=== PATIENT | female | born 1990 ===

== ENCOUNTER 2018-12-03 19:47 | Inpatient (IN) | payer BC ==
[2018-12-03] MEDS ORDERED: Butorphanol 1 MG/ML SDV IVPUSH PRN (20:40)
[2018-12-03] MEDS ORDERED: Methylergonovine 0.2 MG/1 ML Amp IM PRN (20:40)
[2018-12-03] MEDS ORDERED: Sodium Chloride 0.9% 10 ML SDV IV PRN (20:40)
[2018-12-03] MEDS ORDERED: Terbutaline 1 MG/ML SDV SUBCUT PRN (20:40)
[2018-12-03] MEDS ORDERED: Nalbuphine 10 MG/1 ML Vial IVPUSH PRN (20:40)
[2018-12-03] MEDS ORDERED: Misoprostol 200 MCG Tab PO PRN (20:40)
[2018-12-03] MEDS ORDERED: Sodium Chloride 0.9% 10 ML Syringe FLUSH PRN (20:40)
[2018-12-03] MEDS ORDERED: Misoprostol 25 MCG (1/4 of 100 MCG) Tab VAG PRN ×2 (20:40)
[2018-12-03] MEDS ORDERED: Tranexamic Acid 1,000 MG in Sodium Chloride 0.9% 100 ML IV PRN (20:40)
[2018-12-03] MEDS ORDERED: Water For Irrigation,Sterile 1,000 ML Container IRR PRN (20:40)
[2018-12-03] MEDS ORDERED: Lidocaine 1% 50 ML MDV INJECT PRN (20:40)
[2018-12-03] MEDS ORDERED: Ondansetron 4 MG/2 ML SDV IV PRN (20:40)
[2018-12-03] MEDS ORDERED: Carboprost Tromethamine 250 MCG/1 ML Amp IM PRN (20:40)
[2018-12-03] MEDS ORDERED: Sodium Chloride 0.9% 2.5 ML Syringe FLUSH PRN (20:40)
[2018-12-03] MEDS ORDERED: Oxytocin/0.9 % Sodium Chloride 30 UNIT/500 ML BAG IV SCH ×2 (20:45)
[2018-12-04] MEDS: Lactated Ringers 1,000 ML IV SCH ×7 (07:54→22:31)
--- NOTE | 2018-12-04 12:09 | PCM.PREANE ---
Preanesthetic Assessment - Procedure Proposed Procedure: MARGARITA - Anesthesia/Transfusion/Family Hx Anesthesia History: Prior Anesthesia Without Reaction Family History of Anesthesia Reaction: No Transfusion History: No Prior Transfusion(s) - Review of Systems General: No Symptoms Pulmonary: No Symptoms Cardiovascular: No Symptoms Gastrointestinal: No Symptoms Neurological: No Symptoms Other: Reports: Diabetes - Physical Assessment Height: 5 ft 2 in Weight: 97.976 kg ASA Class: 2 Mental Status: Alert & Oriented x3 Airway Class: Mallampati = 2 Dentition: Reports: Normal Dentition ROM/Head Extension: Full Lungs: Clear to Auscultation, Normal Respiratory Effort Cardiovascular: Regular Rate, Regular Rhythm - Lab Values: Laboratory Last Values WBC 11.86 K/uL (4.0-11.0) H 12/03/18 21:08 RBC 4.61 M/uL (4.30-5.90) 12/03/18 21:08 Hgb 12.8 g/dL (12.0-16.0) 12/03/18 21:08 Hct 38.7 % (36.0-46.0) 12/03/18 21:08 MCV 83.9 fL (80.0-98.0) 12/03/18 21:08 MCH 27.8 pg (27.0-32.0) 12/03/18 21:08 MCHC 33.1 g/dL (31.0-37.0) 12/03/18 21:08 RDW Std Deviation 47.0 fl (28.0-62.0) 12/03/18 21:08 RDW Coeff of Betzy 15 % (11.0-15.0) 12/03/18 21:08 Plt Count 281 K/uL (150-400) 12/03/18 21:08 MPV 10.60 fL (7.40-12.00) 12/03/18 21:08 Nucleated RBC % 0.0 /100WBC 12/03/18 21:08 Nucleated RBCs # 0 K/uL 12/03/18 21:08 POC Glucose 68 mg/dL (60-110) 12/04/18 07:38 Blood Type B POSITIVE 12/03/18 21:08 Antibody Screen NEGATIVE 12/03/18 21:08 - Allergies Allergies/Adverse Reactions: Allergies Allergy/AdvReac Type Severity Reaction Status Date / Time No Known Allergies Allergy Verified 09/07/18 21:29 - Blood Blood Available: No Product(s) Available: None - Anesthesia Plan Pre-Op Medication Ordered: None - Acknowledgements Anesthesia Type Planned: Epidural Pt an Appropriate Candidate for the Planned Anesthesia: Yes Alternatives and Risks of Anesthesia Discussed w Pt/Guardian: Yes Pt/Guardian Understands and Agrees with Anesthesia Plan: Yes PreAnesthesia Questionnaire HEENT History: Reports: None Cardiovascular History: Reports: None Respiratory History: Reports: None Genitourinary History: Reports: None CELERY PACKER History: Reports: Polycystic Ovaries, , Spontaneous Musculoskeletal History: Reports: None Neurological History: Reports: None Psychiatric History: Reports: None Endocrine/Metabolic History: Reports: Diabetes, Gestational Hematologic History: Reports: None Immunologic History: Reports: None Oncologic (Cancer) History: Reports: None Dermatologic History: Reports: None - Past Surgical History Head Surgeries/Procedures: Reports: None GI Surgical History: Reports: Colonoscopy, Polypectomy Female Surgical History: Reports: Cystectomy - SUBSTANCE USE Smoking Status *Q: Current Every Day Smoker Tobacco Use Within Last Twelve Months: Cigarettes Second Hand Smoke Exposure: Yes Recreational Drug Use History: No - HOME MEDS Home Medications: Home Meds Metoclopramide [Reglan] 10 mg PO Q8H PRN 5 Days #30 tab 09/08/18 [Rx] - CURRENT (IN HOUSE) MEDS Current Meds: Current Medications Butorphanol Tartrate (Stadol) 1 mg IVPUSH Q1H PRN PRN Reason: Pain Last Admin: 12/04/18 10:11 Dose: 1 mg Carboprost Tromethamine (Hemabate Ds) 250 mcg IM ASDIRECTED PRN PRN Reason: Post Hemorrhage Lactated Ringer's (Ringers, Lactated) 1,000 mls @ 150 mls/hr IV ASDIRECTED BA Last Admin: 12/04/18 12:05 Dose: 500 mls/hr Oxytocin/Sodium Chloride (Oxytocin 30 Unit/500 Ml-Ns) 30 unit in 500 mls @ 999 mls/hr IV TITRATE BA Oxytocin/Sodium Chloride (Oxytocin 30 Unit/500 Ml-Ns) 30 unit in 500 mls @ 2 mls/hr IV TITRATE BA; Protocol Last Admin: 12/04/18 08:11 Dose: 2 munits/min, 2 mls/hr Tranexamic Acid 1,000 mg/ (Sodium Chloride) 110 mls @ 660 mls/hr IV ONETIME PRN PRN Reason: Bleeding Lidocaine HCl (Xylocaine 1%) 50 ml INJECT ONETIME PRN PRN Reason: Laceration repair Methylergonovine Maleate (Methergine) 0.2 mg IM ASDIRECTED PRN PRN Reason: Post Hemorrhage Misoprostol (Cytotec) 200 mcg PO ONETIME PRN PRN Reason: Post Hemorrhage Misoprostol (Cytotec) 25 mcg VAG ONETIME PRN PRN Reason: Cervical Ripening Last Admin: 12/03/18 21:50 Dose: 25 mcg Misoprostol (Cytotec) 25 mcg VAG Q4H PRN PRN Reason: Cervical Ripening Last Admin: 12/04/18 03:32 Dose: 25 mcg Nalbuphine HCl (Nubain) 10 mg IVPUSH Q1H PRN PRN Reason: Pain (severe 7-10) Last Admin: 12/04/18 11:44 Dose: 10 mg Ondansetron HCl (Zofran) 4 mg IV Q6H PRN PRN Reason: Nausea/Vomiting Sodium Chloride (Saline Flush) 10 ml FLUSH ASDIRECTED PRN PRN Reason: Keep Vein Open Sodium Chloride (Saline Flush) 2.5 ml FLUSH ASDIRECTED PRN PRN Reason: Keep Vein Open Sodium Chloride (Normal Saline) 10 ml IV ASDIRECTED PRN PRN Reason: IV Use Sterile Water (Sterile Water For Irrigation) 1,000 ml IRR ASDIRECTED PRN PRN Reason: delivery Terbutaline Sulfate (Brethine) 0.25 mg SUBCUT ASDIRECTED PRN PRN Reason: Tacysystole
[2018-12-04] MEDS ORDERED: fentaNYL 100 MCG/2 ML SDV ONE (12:15)
[2018-12-04] MEDS ORDERED: Lidocaine HCl/EPINEPHrine 5 ML IJ ONE (12:15)
[2018-12-04] MEDS ORDERED: Bupivacaine 0.25% 10 ML SDV ONE (12:15)
[2018-12-04] MEDS ORDERED: Bupivacaine 0.5% 10 ML SDV ONE (21:28)
[2018-12-05] MEDS ORDERED: ceFAZolin 2 GM in Premix Bag 1 BAG IV ONE (01:14)
[2018-12-05] MEDS ORDERED: Bupivacaine 0.5% 10 ML SDV ONE (01:20)
[2018-12-05] MEDS ORDERED: Sodium Chloride 0.9% 20 ML ONE (01:32)
[2018-12-05] MEDS ORDERED: ceFAZolin 1 GM Vial ONE (01:32)
[2018-12-05] MEDS ORDERED: Ondansetron 4 MG/2 ML SDV ONE (01:33)
[2018-12-05] MEDS ORDERED: Oxytocin 10 Units/1 ML SDV ONE (01:34)
[2018-12-05] MEDS ORDERED: Morphine PF 10 MG/10 ML SDV ONE (01:51)
[2018-12-05] MEDS ORDERED: Meperidine PF 25 MG/ML Syringe ONE (01:53)
[2018-12-05] MEDS ORDERED: ePHEDrine 50 MG/ML SDV ONE (02:02)
[2018-12-05] MEDS ORDERED: Desflurane 240 ML Bottle ONE (02:11)
[2018-12-05] MEDS ORDERED: Lanolin 100% Cream 7 GM Tube TOP PRN (02:39)
[2018-12-05] MEDS ORDERED: Bisacodyl 10 MG Supp RECTAL PRN (02:39)
[2018-12-05] MEDS ORDERED: Acetaminophen/oxyCODONE 325-5 MG Tab PO PRN ×2 (02:39→18:36)
[2018-12-05] MEDS ORDERED: diphenhydrAMINE 50 MG/ML SDV IVPUSH PRN ×2 (02:39→02:54)
[2018-12-05] MEDS ORDERED: Ondansetron 4 MG/2 ML SDV IVPUSH PRN (02:39)
[2018-12-05] MEDS ORDERED: Lactated Ringers 1,000 ML IV SCH (02:45)
[2018-12-05] MEDS ORDERED: Naloxone 0.4 MG/ML Syringe IVPUSH PRN (02:54)
--- NOTE | 2018-12-05 02:56 | PCM.OPNOTE ---
- General Post-Op/Procedure Note Date of Surgery/Procedure: 12/05/18 Operative Procedure(s): Primary LTCS Findings: Viable female APGARs 8, 9 weight 3190 gm. Delivery intact placenta with 3V cord Pre Op Diagnosis: 39/2 week IUP. GDM. Abnormal heart tones Post-Op Diagnosis: Same Anesthesia Technique: Epidural Primary Surgeon: Court Villarreal Fluid Replacement, Intraop: 700 EBL in mLs: 600 Complications: none known Condition: Good Free Text/Narrative:: Intake & Output 12/04/18 12/04/18 12/05/18 14:59 22:59 06:59 Intake Total 2000 Output Total 200 Balance 1999 - Dictation [id number]
--- NOTE | 2018-12-05 02:56 | PCM.POSTAN ---
POST ANESTHESIA ASSESSMENT - MENTAL STATUS Mental Status: Alert, Oriented - VITAL SIGNS Pulse Rate: 110 SaO2: 98 (RA) Resp Rate: 14 Blood Pressure: 123/82 - RESPIRATORY Respiratory Status: Respiratory Rate WNL, Airway Patent, O2 Saturation Stable - CARDIOVASCULAR CV Status: Pulse Rate WNL, Blood Pressure Stable - GASTROINTESTINAL GI Status: No Symptoms - PAIN Pain Score: 0 - POST OP HYDRATION Hydration Status: Adequate & Stable
[2018-12-05] MEDS: Ketorolac 30 MG/ML SDV IVPUSH SCH ×4 (03:16→20:53)
--- NOTE | 2018-12-05 04:18 | OR ---
SURGEON: Court Villarreal M.D. DATE OF PROCEDURE: 12/05/2018 PREOPERATIVE DIAGNOSES: 1. 39 and 2-week intrauterine . 2. Gestational diabetes. 3. Abnormal heart tones. POSTOPERATIVE DIAGNOSES: 1. 39 and 2-week intrauterine . 2. Gestational diabetes. 3. Abnormal heart tones. PROCEDURE: Primary low-transverse section. PRIMARY SURGEON: Court Villarreal M.D. ANESTHESIA: Epidural. ESTIMATED BLOOD LOSS: 600 mL. FLUIDS: 700 mL of crystalloid in the OR. COMPLICATIONS: None. FINDINGS: Viable female, scores 8 at 1 minute and 9 at 5 minutes, weight of 3190 g. Intact placenta, 3-vessel cord. DISPOSITION: Infant to nursery, mom to PACU. PROCEDURE DETAILS: Cristiane is a 28-year-old, , at 39 and 2 weeks' gestational age, who presented on the evening of 12/03/2018 for a scheduled induction of labor due to gestational diabetes at term gestation. The patient was initiated on Cytotec ripening, responded nicely to this. The following morning progressed to Pitocin induction. Had spontaneous rupture of membranes at approximately 10:30 a.m. with clear fluid. 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 At that time, she was found to be 3 cm, underwent regional anesthesia from epidural, became more comfortable. Shortly before 7:00 p.m., she was found to be 4 to 5 cm, 90% effaced, -2 station. An IUPC was placed and continued monitoring with titration of Pitocin, and was able to progress to complete, 100% effaced, at +1 station. Shortly before 9:00 p.m., she began pushing efforts and was pushing adequately. However, in the second hour of pushing, we started having recurrent late variable decelerations that were fairly deep to the 70s. Therefore, we tried repositioning, decreasing Pitocin with still deep variables with any efforts at pushing. The station was still +1. Therefore, given these findings and recurrent late decelerations, I am advising proceeding with delivery. Risks of the procedure have been discussed with her including infection; bleeding; possible trauma to the surrounding bowel, bladder, and ureters; in case of excessive blood loss, need for blood product transfusion; in rare lifesaving circumstances, need for hysterectomy; risk of thrombolic event; and risk of anesthesia. The patient voiced her understanding to this and would like to proceed. The patient was taken to the operating room where she underwent a bolus of her epidural, was placed in dorsal supine position with leftward tilt, SCDs to the lower extremities, [place] to gravity, and was prepped and draped in the usual sterile fashion. After anesthesia was tested and found to be adequate, a time- out was held, and Pfannenstiel skin incision was created and carried down to the level of the rectus fascia, was incised in midline, lateralized on either side sharply and bluntly. The superior aspect of the fascia was tented upward, dissected sharply and bluntly from underlying muscle. In a similar manner, it was performed on the inferior aspect of the fascia. Rectus muscle was in the midline. Peritoneum was entered. Rectus muscle and peritoneum were lateralized bluntly. Uterine position and position were palpated. Uterovesical reflection was visualized. Bladder flap was created sharply and bluntly. Bladder was mobilized away from the lower uterine segment. Low transverse hysterotomy was now performed. Uterine cavity was entered bluntly with the scalpel. Hysterotomy was lateralized bluntly. Infant's head was flexed and delivered from the pelvis. There was a loose nuchal cord x1, reduced manually. Infant's shoulders followed by remainder of the body was delivered. Infant's oropharynx and nares were bulb suctioned. Cord was clamped x2 and cut. was handed off to the attending escrow secretary. Cord arterial, cord venous, cord blood sampling was obtained. The placenta was now delivered. Uterine cavity was cleared of all clot and debris. Hysterotomy was repaired using 0 Vicryl in continuous running locked fashion followed by re-imbricating layer. Area of oozing along the midline was replicated with 3 [id number] sutures. Hemostasis thereafter evident. Posterior aspect of the uterus was inspected, no defects or hematomas were found to be forming. Region was well irrigated, suction dried. Uterus was returned to the abdominal cavity. Colonic gutters were cleared of all clot and debris, well irrigated, suction dried. Hysterotomy was again inspected. Areas of serosal oozing were cauterized. Self- retaining retractor was now gently removed. Hysterotomy was once again inspected and found to be hemostatic. The rectus muscle and peritoneum were reapproximated using 0 Vicryl with inverted mattress suture technique. Anterior aspect of the muscle, posterior aspect of the fascia were closely inspected and any areas of oozing were cauterized. Rectus fascia was reapproximated using 0 Vicryl in continuous running fashion, beginning laterally on each side and meeting in the midline. Subcutaneous tissue was well irrigated, suction dried and any areas of oozing were cauterized. The skin edges were reapproximated using 3-0 Vicryl on a Dash needle in subcuticular fashion followed by re- imbricating with half-inch Steri-Strips and Mastisol. Uterus remained firm. Sponge, instrument, and needle counts were correct x2. The patient tolerated the procedure well. She will go to PACU in stable condition, infant to nursery. PITA / JOSE MARIA /[id number]
[2018-12-05] MEDS: Nalbuphine 10 MG/1 ML Vial IVPUSH PRN ×2 (04:58→16:35)
[2018-12-05] MEDS: Simethicone 80 MG Tab.Chew PO SCH ×3 (06:10→19:52)
--- NOTE | 2018-12-05 07:40 | PCM48HPAN ---
Post Anesthesia Note - EVALUATION WITHIN 48HRS OF ANESTHETIC Vital Signs in Normal Range: Yes Patient Participated in Evaluation: Yes Respiratory Function Stable: Yes Airway Patent: Yes Cardiovascular Function Stable: Yes Hydration Status Stable: Yes Pain Control Satisfactory: Yes Nausea and Vomiting Control Satisfactory: Yes Mental Status Recovered: Yes Pulse Rate: 110 Resp Rate: 17 Blood Pressure: 123/82
[2018-12-05] MEDS: Docusate Sodium 100 MG Cap PO SCH ×2 (08:41→20:53)
[2018-12-06] MEDS: Simethicone 80 MG Tab.Chew PO SCH ×4 (02:38→18:38)
[2018-12-06] MEDS: Ketorolac 30 MG/ML SDV IVPUSH SCH (02:41)
[2018-12-06] MEDS: Acetaminophen/oxyCODONE 325-5 MG Tab PO PRN ×5 (04:00→21:31)
[2018-12-06] MEDS: Docusate Sodium 100 MG Cap PO SCH ×2 (08:45→20:34)
--- NOTE | 2018-12-06 12:17 | PCM.PNPP ---
- General Info Date of Service: 12/06/18 - Review of Systems General: Reports: No Symptoms. Denies: Fever, Weakness Pulmonary: Denies: Shortness of Breath Cardiovascular: Denies: Chest Pain, Palpitations, Lightheadedness Gastrointestinal: Reports: Abdominal Pain (incisional well controlled), Flatus. Denies: Nausea, Vomiting Genitourinary: Reports: No Symptoms Musculoskeletal: Reports: No Symptoms Skin: Reports: No Symptoms Neurological: Reports: No Symptoms Psychiatric: Reports: No Symptoms - General Info Date of Service: 12/06/18 - Patient Data Vital Signs - Most Recent: Last Vital Signs Temp 36.6 C 12/06/18 07:25 Pulse 89 12/06/18 07:25 Resp 18 12/06/18 07:25 BP 131/73 12/06/18 07:25 Pulse Ox 97 12/06/18 07:25 Weight - Most Recent: 97.976 kg I&O - Last 24 Hours: Intake & Output 12/05/18 12/06/18 12/06/18 22:59 06:59 14:59 Output Total 2650 800 Balance -2650 -800 Lab Results - Last 24 Hours: Laboratory Results - last 24 hr 12/06/18 12/06/18 Range/Units 05:37 05:37 Hgb 9.5 L (12.0-16.0) g/dL Hct 29.8 L (36.0-46.0) % Fasting Glucose 90 (74-106) mg/dL Med Orders - Current: Current Medications Bisacodyl (Dulcolax) 10 mg RECTAL ONETIME PRN PRN Reason: Constipation Carboprost Tromethamine (Hemabate Ds) 250 mcg IM ASDIRECTED PRN PRN Reason: Post Hemorrhage Diphenhydramine HCl (Benadryl) 25 mg IVPUSH Q6H PRN PRN Reason: Itching or Nausea Last Admin: 12/05/18 06:52 Dose: 25 mg Docusate Sodium (Colace) 100 mg PO BID BA Last Admin: 12/06/18 08:45 Dose: 100 mg Emollient Ointment (Lansinoh Hpa) 0 gm TOP ASDIRECTED PRN PRN Reason: Sore Nipples Lactated Ringer's (Ringers, Lactated) 1,000 mls @ 150 mls/hr IV ASDIRECTED BA Last Admin: 12/04/18 22:31 Dose: 999 mls/hr Oxytocin/Sodium Chloride (Oxytocin 30 Unit/500 Ml-Ns) 30 unit in 500 mls @ 999 mls/hr IV TITRATE BA Oxytocin/Sodium Chloride (Oxytocin 30 Unit/500 Ml-Ns) 30 unit in 500 mls @ 2 mls/hr IV TITRATE BA; Protocol Last Titration: 12/05/18 01:02 Dose: 0 munits/min, 0 mls/hr Tranexamic Acid 1,000 mg/ (Sodium Chloride) 110 mls @ 660 mls/hr IV ONETIME PRN PRN Reason: Bleeding Lactated Ringer's (Ringers, Lactated) 1,000 mls @ 125 mls/hr IV ASDIRECTED [facility] Ibuprofen (Motrin) 800 mg PO Q8H PRN PRN Reason: mild pain or fever Lidocaine HCl (Xylocaine 1%) 50 ml INJECT ONETIME PRN PRN Reason: Laceration repair Methylergonovine Maleate (Methergine) 0.2 mg IM ASDIRECTED PRN PRN Reason: Post Hemorrhage Nalbuphine HCl (Nubain) 10 mg IVPUSH Q1H PRN PRN Reason: Pain (severe 7-10) Last Admin: 12/04/18 11:44 Dose: 10 mg Ondansetron HCl (Zofran) 4 mg IV Q6H PRN PRN Reason: Nausea/Vomiting Ondansetron HCl (Zofran) 4 mg IVPUSH Q4H PRN PRN Reason: Nausea/Vomiting Oxycodone/Acetaminophen (Percocet 325-5 Mg) 1 tab PO Q4H PRN PRN Reason: Pain (moderate 4-6) Oxycodone/Acetaminophen (Percocet 325-5 Mg) 2 tab PO Q4H PRN PRN Reason: Pain (moderate 4-6) Last Admin: 12/06/18 08:44 Dose: 2 tab Simethicone (Simethicone) 160 mg PO QID [facility] Last Admin: 12/06/18 06:32 Dose: 160 mg Sodium Chloride (Saline Flush) 10 ml FLUSH ASDIRECTED PRN PRN Reason: Keep Vein Open Sodium Chloride (Saline Flush) 2.5 ml FLUSH ASDIRECTED PRN PRN Reason: Keep Vein Open Sterile Water (Sterile Water For Irrigation) 1,000 ml IRR ASDIRECTED PRN PRN Reason: delivery Discontinued Medications Bupivacaine HCl (Sensorcaine-Mpf 0.25%) Confirm Administered Dose 10 ml .ROUTE .STK-MED ONE Stop: 12/04/18 12:16 Last Admin: 12/05/18 05:37 Dose: Not Given Bupivacaine HCl (Sensorcaine-Mpf 0.5%) Confirm Administered Dose 10 ml .ROUTE .STK-MED ONE Stop: 12/04/18 21:29 Last Admin: 12/05/18 05:38 Dose: Not Given Bupivacaine HCl (Sensorcaine-Mpf 0.5%) Confirm Administered Dose 20 ml .ROUTE .STK-MED ONE Stop: 12/05/18 01:21 Last Admin: 12/05/18 05:38 Dose: Not Given Butorphanol Tartrate (Stadol) 1 mg IVPUSH Q1H PRN PRN Reason: Pain Last Admin: 12/04/18 10:11 Dose: 1 mg Cefazolin Sodium (Ancef) Confirm Administered Dose 2 gm .ROUTE .STK-MED ONE Stop: 12/05/18 01:33 Desflurane (Suprane) Confirm Administered Dose 240 ml .ROUTE .STK-MED ONE Stop: 12/05/18 02:12 Diphenhydramine HCl (Benadryl) 25 mg IVPUSH Q4H PRN PRN Reason: Itching Stop: 12/06/18 02:55 Ephedrine Sulfate (Ephedrine Sulfate) Confirm Administered Dose 50 mg .ROUTE .STK-MED ONE Stop: 12/05/18 02:03 Fentanyl (Sublimaze) Confirm Administered Dose 100 mcg .ROUTE .STK-MED ONE Stop: 12/04/18 12:16 Last Admin: 12/05/18 05:38 Dose: Not Given Fentanyl/Bupivacaine HCl (Nrxztxof-Xrhrk-[id number] 2 Mcg/Ml-0.125%) Confirm Administered Dose 100 mls @ as directed .ROUTE .STK-MED ONE Stop: 12/04/18 12:16 Last Admin: 12/05/18 05:37 Dose: Not Given Fentanyl/Bupivacaine HCl (Fktlyzxc-Yqoxm-Kb 2 Mcg/Ml-0.125%) Confirm Administered Dose 100 mls @ as directed .ROUTE .STK-MED ONE Stop: 12/04/18 21:29 Last Admin: 12/05/18 05:38 Dose: Not Given Cefazolin Sodium/Dextrose 2 gm (/ Premix) 50 mls @ 100 mls/hr IV ONETIME ONE Stop: 12/05/18 01:43 Last Admin: 12/05/18 05:38 Dose: Not Given Sodium Chloride (Normal Saline) Confirm Administered Dose 20 mls @ as directed .ROUTE .STK-MED ONE Stop: 12/05/18 01:33 Ketorolac Tromethamine (Toradol) 30 mg IVPUSH Q6H BA Stop: 12/06/18 02:46 Last Admin: 12/06/18 02:41 Dose: 30 mg Lidocaine/Epinephrine (Lidocaine 1.5%-Epi 1:200,000) Confirm Administered Dose 5 ml IJ .STK-MED ONE Stop: 12/04/18 12:16 Last Admin: 12/05/18 05:37 Dose: Not Given Meperidine HCl (Demerol) Confirm Administered Dose 25 mg .ROUTE .STK-MED ONE Stop: 12/05/18 01:54 Misoprostol (Cytotec) 200 mcg PO ONETIME PRN PRN Reason: Post Hemorrhage Misoprostol (Cytotec) 25 mcg VAG ONETIME PRN PRN Reason: Cervical Ripening Last Admin: 12/03/18 21:50 Dose: 25 mcg Misoprostol (Cytotec) 25 mcg VAG Q4H PRN PRN Reason: Cervical Ripening Last Admin: 12/04/18 03:32 Dose: 25 mcg Morphine Sulfate (Duramorph Pf) Confirm Administered Dose 10 mg .ROUTE .STK-MED ONE Stop: 12/05/18 01:52 Nalbuphine HCl (Nubain) 5 mg IVPUSH Q3H PRN PRN Reason: Pruritis Stop: 12/06/18 02:55 Last Admin: 12/05/18 16:35 Dose: 5 mg Naloxone HCl (Narcan) 0.1 mg IVPUSH ONETIME PRN PRN Reason: Respiratory Depression Stop: 12/06/18 02:55 Ondansetron HCl (Zofran) Confirm Administered Dose 4 mg .ROUTE .STK-MED ONE Stop: 12/05/18 01:34 Oxycodone/Acetaminophen (Percocet 325-5 Mg) 1 - 2 tab PO Q4H PRN PRN Reason: Pain Stop: 12/06/18 01:46 Last Admin: 12/05/18 19:11 Dose: 2 tab Oxytocin (Pitocin) Confirm Administered Dose 30 unit .ROUTE .STK-MED ONE Stop: 12/05/18 01:35 Sodium Chloride (Normal Saline) 10 ml IV ASDIRECTED PRN PRN Reason: IV Use Terbutaline Sulfate (Brethine) 0.25 mg SUBCUT ASDIRECTED PRN PRN Reason: Tacysystole - Infant Interaction Support Person: , Sister - Recovery Exam Fundal Tone: Firm Fundal Level: 1 Fingerbreadths Below Umbilicus Fundal Placement: Midline Lochia Amount: Scant Lochia Color: [place] Perineum Description: Intact, Minimal Bruising/Swelling, Other (see below) Other Perinuem Description: labial edema Episiotomy/Laceration: None Bladder Status: Voiding Urinary Elimination: Voided - Exam General: Alert, Oriented Lungs: Normal Respiratory Effort Cardiovascular: Regular Rate, Regular Rhythm GI/Abdominal Exam: Normal Bowel Sounds, Soft Extremities: Pedal Edema (1+). No: Jerrell's Sign Skin: Warm, Dry, Intact Wound/Incisions: Healing Well, No Drainage. No: Erythema Neurological: No New Focal Deficit Psy/Mental Status: Alert, Normal Affect, Normal Mood - Problem List & Annotations (1) Delivery by section SNOMED Code(s): 211461944 Code(s): PFS3947 - Status: Acute Current Visit: Yes - Problem List Review Problem List Initiated/Reviewed/Updated: Yes - My Orders Last 24 Hours: My Active Orders 12/06/18 08:46 Ibuprofen [Motrin] 800 mg PO Q8H PRN - Assessment Assessment:: PPD 1 status post primary LTCS Gestational diabetes, normal fasting glucose - Plan Plan:: Stable overall, continue postoperative cares.
[2018-12-06] MEDS: Ibuprofen 800 MG Tab PO PRN (16:06)
[2018-12-07] MEDS: Simethicone 80 MG Tab.Chew PO SCH ×2 (00:05→05:58)
[2018-12-07] MEDS: Ibuprofen 800 MG Tab PO PRN (04:40)
[2018-12-07] MEDS: Acetaminophen/oxyCODONE 325-5 MG Tab PO PRN (06:05)
[2018-12-07] MEDS: Docusate Sodium 100 MG Cap PO SCH (08:46)
--- NOTE | 2018-12-07 09:58 | PCM.PNPP ---
- General Info Date of Service: 12/07/18 Functional Status: Reports: Pain Controlled, Tolerating Diet, Ambulating, Urinating - Review of Systems General: Denies: Fever, Weakness Pulmonary: Denies: Shortness of Breath Cardiovascular: Denies: Chest Pain, Palpitations Gastrointestinal: Reports: Flatus. Denies: Abdominal Pain, Nausea, Vomiting Genitourinary: Reports: No Symptoms Musculoskeletal: Reports: No Symptoms Skin: Reports: No Symptoms Neurological: Reports: No Symptoms Psychiatric: Reports: No Symptoms - General Info Date of Service: 12/07/18 - Patient Data Vital Signs - Most Recent: Last Vital Signs Temp 36.8 C 12/07/18 08:08 Pulse 89 12/07/18 08:08 Resp 14 12/07/18 08:08 BP 123/79 12/07/18 08:08 Pulse Ox 99 12/07/18 08:08 Weight - Most Recent: 97.976 kg Med Orders - Current: Current Medications Bisacodyl (Dulcolax) 10 mg RECTAL ONETIME PRN PRN Reason: Constipation Carboprost Tromethamine (Hemabate Ds) 250 mcg IM ASDIRECTED PRN PRN Reason: Post Hemorrhage Diphenhydramine HCl (Benadryl) 25 mg IVPUSH Q6H PRN PRN Reason: Itching or Nausea Last Admin: 12/05/18 06:52 Dose: 25 mg Docusate Sodium (Colace) 100 mg PO BID BA Last Admin: 12/07/18 08:46 Dose: 100 mg Emollient Ointment (Lansinoh Hpa) 0 gm TOP ASDIRECTED PRN PRN Reason: Sore Nipples Lactated Ringer's (Ringers, Lactated) 1,000 mls @ 150 mls/hr IV ASDIRECTED BA Last Admin: 12/04/18 22:31 Dose: 999 mls/hr Oxytocin/Sodium Chloride (Oxytocin 30 Unit/500 Ml-Ns) 30 unit in 500 mls @ 999 mls/hr IV TITRATE BA Oxytocin/Sodium Chloride (Oxytocin 30 Unit/500 Ml-Ns) 30 unit in 500 mls @ 2 mls/hr IV TITRATE BA; Protocol Last Titration: 12/05/18 01:02 Dose: 0 munits/min, 0 mls/hr Tranexamic Acid 1,000 mg/ (Sodium Chloride) 110 mls @ 660 mls/hr IV ONETIME PRN PRN Reason: Bleeding Lactated Ringer's (Ringers, Lactated) 1,000 mls @ 125 mls/hr IV ASDIRECTED BA Ibuprofen (Motrin) 800 mg PO Q8H PRN PRN Reason: mild pain or fever Last Admin: 12/07/18 04:40 Dose: 800 mg Lidocaine HCl (Xylocaine 1%) 50 ml INJECT ONETIME PRN PRN Reason: Laceration repair Methylergonovine Maleate (Methergine) 0.2 mg IM ASDIRECTED PRN PRN Reason: Post Hemorrhage Nalbuphine HCl (Nubain) 10 mg IVPUSH Q1H PRN PRN Reason: Pain (severe 7-10) Last Admin: 12/04/18 11:44 Dose: 10 mg Ondansetron HCl (Zofran) 4 mg IV Q6H PRN PRN Reason: Nausea/Vomiting Ondansetron HCl (Zofran) 4 mg IVPUSH Q4H PRN PRN Reason: Nausea/Vomiting Oxycodone/Acetaminophen (Percocet 325-5 Mg) 1 tab PO Q4H PRN PRN Reason: Pain (moderate 4-6) Oxycodone/Acetaminophen (Percocet 325-5 Mg) 2 tab PO Q4H PRN PRN Reason: Pain (moderate 4-6) Last Admin: 12/07/18 06:05 Dose: 2 tab Simethicone (Simethicone) 160 mg PO QID [facility] Last Admin: 12/07/18 05:58 Dose: 160 mg Sodium Chloride (Saline Flush) 10 ml FLUSH ASDIRECTED PRN PRN Reason: Keep Vein Open Sodium Chloride (Saline Flush) 2.5 ml FLUSH ASDIRECTED PRN PRN Reason: Keep Vein Open Sterile Water (Sterile Water For Irrigation) 1,000 ml IRR ASDIRECTED PRN PRN Reason: delivery Discontinued Medications Bupivacaine HCl (Sensorcaine-Mpf 0.25%) Confirm Administered Dose 10 ml .ROUTE .STK-MED ONE Stop: 12/04/18 12:16 Last Admin: 12/05/18 05:37 Dose: Not Given Bupivacaine HCl (Sensorcaine-Mpf 0.5%) Confirm Administered Dose 10 ml .ROUTE .STK-MED ONE Stop: 12/04/18 21:29 Last Admin: 12/05/18 05:38 Dose: Not Given Bupivacaine HCl (Sensorcaine-Mpf 0.5%) Confirm Administered Dose 20 ml .ROUTE .STK-MED ONE Stop: 12/05/18 01:21 Last Admin: 12/05/18 05:38 Dose: Not Given Butorphanol Tartrate (Stadol) 1 mg IVPUSH Q1H PRN PRN Reason: Pain Last Admin: 12/04/18 10:11 Dose: 1 mg Cefazolin Sodium (Ancef) Confirm Administered Dose 2 gm .ROUTE .STK-MED ONE Stop: 12/05/18 01:33 Desflurane (Suprane) Confirm Administered Dose 240 ml .ROUTE .STK-MED ONE Stop: 12/05/18 02:12 Diphenhydramine HCl (Benadryl) 25 mg IVPUSH Q4H PRN PRN Reason: Itching Stop: 12/06/18 02:55 Ephedrine Sulfate (Ephedrine Sulfate) Confirm Administered Dose 50 mg .ROUTE .STK-MED ONE Stop: 12/05/18 02:03 Fentanyl (Sublimaze) Confirm Administered Dose 100 mcg .ROUTE .STK-MED ONE Stop: 12/04/18 12:16 Last Admin: 12/05/18 05:38 Dose: Not Given Fentanyl/Bupivacaine HCl (Uyjsisil-Drccf-Vo 2 Mcg/Ml-0.125%) Confirm Administered Dose 100 mls @ as directed .ROUTE .STK-MED ONE Stop: 12/04/18 12:16 Last Admin: 12/05/18 05:37 Dose: Not Given Fentanyl/Bupivacaine HCl (Saivaewp-Ofzjv-Bb 2 Mcg/Ml-0.125%) Confirm Administered Dose 100 mls @ as directed .ROUTE .STK-MED ONE Stop: 12/04/18 21:29 Last Admin: 12/05/18 05:38 Dose: Not Given Cefazolin Sodium/Dextrose 2 gm (/ Premix) 50 mls @ 100 mls/hr IV ONETIME ONE Stop: 12/05/18 01:43 Last Admin: 12/05/18 05:38 Dose: Not Given Sodium Chloride (Normal Saline) Confirm Administered Dose 20 mls @ as directed .ROUTE .STK-MED ONE Stop: 12/05/18 01:33 Ketorolac Tromethamine (Toradol) 30 mg IVPUSH Q6H BA Stop: 12/06/18 02:46 Last Admin: 12/06/18 02:41 Dose: 30 mg Lidocaine/Epinephrine (Lidocaine 1.5%-Epi 1:200,000) Confirm Administered Dose 5 ml IJ .STK-MED ONE Stop: 12/04/18 12:16 Last Admin: 12/05/18 05:37 Dose: Not Given Meperidine HCl (Demerol) Confirm Administered Dose 25 mg .ROUTE .STK-MED ONE Stop: 12/05/18 01:54 Misoprostol (Cytotec) 200 mcg PO ONETIME PRN PRN Reason: Post Hemorrhage Misoprostol (Cytotec) 25 mcg VAG ONETIME PRN PRN Reason: Cervical Ripening Last Admin: 12/03/18 21:50 Dose: 25 mcg Misoprostol (Cytotec) 25 mcg VAG Q4H PRN PRN Reason: Cervical Ripening Last Admin: 12/04/18 03:32 Dose: 25 mcg Morphine Sulfate (Duramorph Pf) Confirm Administered Dose 10 mg .ROUTE .STK-MED ONE Stop: 12/05/18 01:52 Nalbuphine HCl (Nubain) 5 mg IVPUSH Q3H PRN PRN Reason: Pruritis Stop: 12/06/18 02:55 Last Admin: 12/05/18 16:35 Dose: 5 mg Naloxone HCl (Narcan) 0.1 mg IVPUSH ONETIME PRN PRN Reason: Respiratory Depression Stop: 12/06/18 02:55 Ondansetron HCl (Zofran) Confirm Administered Dose 4 mg .ROUTE .STK-MED ONE Stop: 12/05/18 01:34 Oxycodone/Acetaminophen (Percocet 325-5 Mg) 1 - 2 tab PO Q4H PRN PRN Reason: Pain Stop: 12/06/18 01:46 Last Admin: 12/05/18 19:11 Dose: 2 tab Oxytocin (Pitocin) Confirm Administered Dose 30 unit .ROUTE .STK-MED ONE Stop: 12/05/18 01:35 Sodium Chloride (Normal Saline) 10 ml IV ASDIRECTED PRN PRN Reason: IV Use Terbutaline Sulfate (Brethine) 0.25 mg SUBCUT ASDIRECTED PRN PRN Reason: Tacysystole - Interaction Support Person: , Sister - Recovery Exam Fundal Tone: Firm Fundal Level: 2 Fingerbreadths Below Umbilicus Fundal Placement: Midline Lochia Amount: Scant Lochia Color: [place] Perineum Description: Intact, Minimal Bruising/Swelling, Other (see below) Other Perinuem Description: labial edema Episiotomy/Laceration: None Bladder Status: Voiding Urinary Elimination: Voided - Exam General: Alert, Oriented Lungs: Normal Respiratory Effort Cardiovascular: Regular Rate, Regular Rhythm GI/Abdominal Exam: Normal Bowel Sounds, Soft Extremities: Pedal Edema (trace). No: Jerrell's Sign Skin: Warm, Dry, Intact Wound/Incisions: Healing Well, No Drainage. No: Erythema Neurological: No New Focal Deficit Psy/Mental Status: Alert, Normal Affect, Normal Mood - Problem List & Annotations (1) Delivery by section SNOMED Code(s): 975009965 Code(s): [id number] - Status: Acute Current Visit: Yes - Problem List Review Problem List Initiated/Reviewed/Updated: Yes - My Orders Last 24 Hours: My Active Orders 12/07/18 09:53 Ready for Discharge [RC] PER UNIT ROUTINE - Assessment Assessment:: PPD 2 status post primary LTCS Gestational diabetes, normal fasting glucose - Plan Plan:: Doing well overall--would like to go home today. Discharge instructions reviewed. Follow up at [facility] 2 and 6 weeks. Plan 75 gm GTT at PP visit
== END 2018-12-07 12:05 | disposition home or self-care (01) | DRG 540 ==
LOC: MW.OBCHECK 19:47 → MW.OB 19:50 → OBSVTOIN 12-05 01:46 → MW.OB 12-05 02:59
PROVIDERS: ADMIT Obstetrics & Gynecology; ATTEND Obstetrics & Gynecology
PROC: 10D00Z1 Extraction of Products of Conception, Low, Open Approach (ICD-10-PCS; principal; 2018-12-05)
DX: O24.429 Gestational diabetes mellitus in childbirth, unspecified control (principal); O99.334 Smoking (tobacco) complicating childbirth; F17.210 Nicotine dependence, cigarettes, uncomplicated; O69.81X0 Labor and delivery complicated by cord around neck, without compression, not applicable or unspecified; O76 Abnormality in fetal heart rate and rhythm complicating labor and delivery; Z37.0 Single live birth; Z3A.39 39 weeks gestation of pregnancy
CPT/HCPCS: 36415; 51702; 59025; 82803; 82947; 82962; 85014; 85018; 85027; 86850; 86900; 86901; A9270-GY; J0595; J0690; J1200; J1885; J2175; J2270; J2300; J2405; J2590; J7120